=== PATIENT | male | born 1970 | race Caucasian/White ===

== ENCOUNTER 2021-05-10 06:27 | Day surgery (SDC) | payer BC ==
[2021-05-08 12:49] VITALS: BMI 32.1
[2021-05-10] MEDS ORDERED: PROPOFOL 40 ML ONE (07:00)
[2021-05-10] MEDS ORDERED: Lidocaine 2% PF 100 mg/5 ml Syringe ONE (07:00)
[2021-05-10] MEDS ORDERED: Lidocaine 1% PF 5 ML VIAL ONE (07:00)
== END 2021-05-10 08:31 | disposition home or self-care (01) ==
LOC: CCL 06:27
PROVIDERS: ATTEND Internal Medicine Cardiovascular Disease
PROC: 5A2204Z Restoration of Cardiac Rhythm, Single (ICD-10-PCS; principal; 2021-05-10)
DX: I48.19 Other persistent atrial fibrillation (principal); I42.8 Other cardiomyopathies; I11.0 Hypertensive heart disease with heart failure; I50.22 Chronic systolic (congestive) heart failure; E78.5 Hyperlipidemia, unspecified; I25.10 Atherosclerotic heart disease of native coronary artery without angina pectoris; I42.9 Cardiomyopathy, unspecified; J45.909 Unspecified asthma, uncomplicated; E11.9 Type 2 diabetes mellitus without complications; I47.2 Ventricular tachycardia; G47.33 Obstructive sleep apnea (adult) (pediatric); Z87.891 Personal history of nicotine dependence; Z79.01 Long term (current) use of anticoagulants; Z79.4 Long term (current) use of insulin; Z79.899 Other long term (current) drug therapy; Z88.1 Allergy status to other antibiotic agents; Z88.8 Allergy status to other drugs, medicaments and biological substances; Z95.810 Presence of automatic (implantable) cardiac defibrillator
CPT/HCPCS: 92960; 93005; 93010; J2001; J2704